=== PATIENT | female | born 1985 | race Caucasian/White ===

== ENCOUNTER 2020-06-10 11:58 | Emergency (ER) | payer OTHER ==
[~2020-06-10 11:58] MED LIST: IBU600 MG PO; ZOFRAN4 MG PO
[2020-06-10 12:58] LABS: BASOPHIL 0.2 % (0-2); EOSINOPHIL 0.1 % (0-5); HCT 42.2 % (37.0-47.0); HGB 15.5 g/dl (12.5-16.0); LYMPHOCYTE 7.5 % (15-48); MCH 34.8 pg (25.0-31.0); MCHC 36.7 g/dL (32.0-36.0); MCV 94.8 fL (78.0-100.0); MONOCYTE 4.7 % (0-12); MPV 9.8 fL (6.0-9.5); NEUTROPHIL 87.2 % (41-80); NRBC 0; PLT 340 K/uL (150-400); RBC 4.45 M/uL (4.20-5.40); RDW 11.6 % (11.5-14.0); WBC 19.1 K/uL (4.0-10.5)
[2020-06-10 13:07] LABS: ALBUMIN 4.3 g/dL (3.4-5.0); BILIRUBIN - TOTAL 0.4 mg/dL (0.2-1.0); BUN/CREAT RATIO (CALC) 14.3 RATIO; CREATININE 0.7 mg/dL (0.51-0.95); GLOBULIN (CALCULATION) 3.7 g/dL
[2020-06-10] MEDS ORDERED: ZOFRAN4 M1 PO (16:21)
[2020-06-10] MEDS ORDERED: MUCINEX 600MG600 MG PO (16:21)
[2020-06-10] MEDS ORDERED: MEDROL 4MG DOSEP4 MG PO (16:21)
[2020-06-10] MEDS ORDERED: AUGMENTIN 875-1 EACH PO (16:21)
[2020-06-10] MEDS ORDERED: VENTOLIN HFA18 GM INH (16:21)
== END 2020-06-10 16:37 | disposition home or self-care (01) ==
LOC: FER 11:58
PROVIDERS: Emergency Medicine
DX: J40 Bronchitis, not specified as acute or chronic (principal); J32.9 Chronic sinusitis, unspecified; F17.210 Nicotine dependence, cigarettes, uncomplicated; Z88.5 Allergy status to narcotic agent
CPT/HCPCS: 36415; 71250; 80053; 84145; 85025; 94640; J1100; J2405

== ENCOUNTER 2021-06-04 11:29 | Emergency (ER) | payer OTHER ==
[~2021-06-04 11:29] MED LIST changes: +AUGMENTIN 875-1 EACH PO; +MEDROL 4MG DOSEP4 MG PO; +MUCINEX 600MG600 MG PO; +VENTOLIN HFA18 GM INH; +ZOFRAN4 M1 PO
[2021-06-04 12:01] LABS: BASOPHIL 0.6 % (0-2); EOSINOPHIL 0.7 % (0-5); HCT 45.5 % (37.0-47.0); LYMPHOCYTE 16.6 % (15-48); MCH 34.5 pg (25.0-31.0); MCHC 35.2 g/dL (32.0-36.0); MCV 98.1 fL (78.0-100.0); MPV 9.6 fL (6.0-9.5); NEUTROPHIL 77.9 % (41-80); NRBC 0; PLT 290 K/uL (150-400); RBC 4.64 M/uL (4.20-5.40); RDW 11.7 % (11.5-14.0); WBC 8.4 K/uL (4.0-10.5)
[2021-06-04 12:18] LABS: ALBUMIN 4.1 g/dL (3.4-5.0); BILIRUBIN - TOTAL 0.3 mg/dL (0.2-1.0); CREATININE 0.69 mg/dL (0.51-0.95); GLOBULIN (CALCULATION) 3.6 g/dL; POTASSIUM 3.9 mmol/L (3.5-5.1); TOTAL PROTEIN 7.7 g/dL (6.4-8.2)
[2021-06-04 13:14] LABS: BILIRUBIN NEGATIVE (NEGATIVE); BLOOD NEGATIVE Ery/uL (NEGATIVE); CLARITY CLEAR (CLEAR); COLOR YELLOW (YELLOW); GLUCOSE (U) NORMAL (NORMAL); LEUKOCYTES NEGATIVE Leu/uL (NEGATIVE); NITRITE NEGATIVE (NEGATIVE); PROTEIN NEGATIVE (NEGATIVE); SPECIFIC GRAVITY 1.015 (1.001-1.030); UROBILINOGEN 0.2 mg/dL (0.2-1.0); pH 8.5 (5.0-9.0)
[2021-06-04] MEDS ORDERED: NITROFURANTOIN100 M1 PO (15:03)
== END 2021-06-04 15:12 | disposition home or self-care (01) ==
LOC: FER 11:29
PROVIDERS: Emergency Medicine
DX: N20.0 Calculus of kidney (principal); N39.0 Urinary tract infection, site not specified; R10.13 Epigastric pain; F17.210 Nicotine dependence, cigarettes, uncomplicated; Z88.5 Allergy status to narcotic agent; Z28.310 Unvaccinated for COVID-19
CPT/HCPCS: 36415; 80053; 81003; 82150; 83690; 85025; Q9967